=== PATIENT | female | born 1985 | race Caucasian/White ===

== ENCOUNTER 2019-09-06 12:21 | Emergency (ER) | payer BC ==
--- OUTSIDE RECORDS SUMMARY | 2019-09-06 12:24 | XMS REPORT | Summary of Care ---
:1985 Author Organization [facility] Address [address] [place] [address] Care Team Providers Name Role Phone LIBERTY FELICIANO DO Unavailable Unavailable LIBERTY FELICIANO MD Unavailable Unavailable JOSEPHINE MINING TECHNICIAN JIGNESH MOHR Unavailable Unavailable Functional Status Name Dates Details Functional status health issues are not documented Status: Name Dates Details Cognitive status health issues are not documented Status: Problems Name Dates Details Active medical history not documented Status: Medications Name Dates Details Medications not documented Allergies and Adverse Reactions Name Dates Details Allergy history not documented Status: Procedures Procedure Dates Details Procedures not documented Immunization Name Dates Details Immunizations not documented Social History Name Dates Details Tobacco smoking consumption unknown (finding) Vital Signs Date Test Result Details No Known Vitals to report Results Date Description Value Details Results not documented Plan of Care Name Dates Details Planned Observations Planned Goals not documented Planned Encounters Appointment; JIGNESH BURTON APRN On: 26-Aug-2019 11:00 Instructions Name Dates Details Instructions not documented Encounters Appointment; BRIAN ZUÑIGA M.D. On: 29-Sep-2017 14:30 Encounter Diagnosis: Problem not documented Appointment; BRIAN ZUÑIGA M.D. On: 23-Oct-2017 14:15 Encounter Diagnosis: Problem not documented Appointment; BRIAN ZUÑIGA M.D. On: 05-Nov-2017 15:15 Encounter Diagnosis: Problem not documented
--- OUTSIDE RECORDS SUMMARY | 2019-09-06 12:24 | XMS REPORT | Summary of Care ---
:1985 Author Name JIGNESH BURTON APRN Address Unavailable Unavailable , Care Team Providers Name Role Phone BRIAN ZUÑIGA M.D. Unavailable Unavailable JOSEPHINE APRN, JIGNESH Unavailable Unavailable LIBERTY FELICIANO DO Unavailable Unavailable LIBERTY FELICIANO MD Unavailable Unavailable JOSEPHINE AUTOMATIC VULCANIZING OPERATOR [place], JIGNESH Unavailable Unavailable Functional Status Name Dates Details Functional status health issues are not documented Status: Name Dates Details Cognitive status health issues are not documented Status: Problems Name Dates Details Right knee pain (719.46, M25.561) Status: Active Tear of medial meniscus of right knee (836.0, S83.241A) Status: Active Medications Name Dates Details Vyvanse CAPS Refills: 0 Active Lexapro TABS Refills: 0 Active Acetaminophen-Codeine #3 300-30 MG Oral Tablet TAKE 1 TABLET EVERY 6 HOURS NEEDED FOR PAIN. Quantity: 28 Refills: 0 YOGESH Boss, BRIAN Start : 26-Aug-2019 Active Allergies and Adverse Reactions Name Dates Details No Known Drug Allergies (Allergy) Status: Active Past Medical History Name Dates Details History of attention deficit hyperactivity disorder (ADHD) (V11.8, Z86.59) Status: Resolved History of depression (V11.8, Z86.59) Status: Resolved Procedures Procedure Dates Details MR Knee wo contrast [id number] Date: 26-Aug-2019 History of No history of surgery Completed Immunization Name Dates Details Immunizations not documented Social History Name Dates Details - Status: Name Dates Details Smoker (finding) Vital Signs Date Test Result Details [id number] Systolic blood pressure 126 mm[Hg] Status: Diastolic blood pressure 84 mm[Hg] Status: Body height 67 in Status: Weight 240 lb Status: Body mass index (BMI) [Ratio] 37.59 kg/m2 Status: Body surface area Derived from formula 2.18 m2 Status: Heart Rate 92 /min Status: Results Date Description Value Details Results not documented Plan of Care Name Dates Details Planned Observations Planned Goals not documented Interventions Provided Medication ChangesAcetaminophen-Codeine #3 300-30 MG Oral Tablet - StartLabs/ Procedures/ImagingMR Knee wo contrast [id number]; To Be Done: 26 Aug 2019[A] Xray KNEE COMPLETE 4 OR MORE VIEWS; Done: 26 Aug 2019PlanPatient Education/ Instructions: Patient education and reassurance was provided for better understanding of the diagnosis and treatment plan. An opportunity to ask questions was provided. X-ray images/reports were reviewed. Findings were discussed in detail. DME Orders: Knee Brace Wraparound knee brace order was giving today. Orders: Medications: - Tramadol 50mg. Take 1-2 every 4-6 hours as needed for pain. Tramadol is a narcotic pain medication. Use only as directed. Do NOT drive or operate machinery while using this medication. MRI Scan (right knee) MRI: Without Contrast Follow Up: Return to the clinic after imaging study completed or as needed.Patient is in clinic complaining of right knee pain, she reports that she is having significant painwith twisting and turning of her knee. 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 An MRI was ordered to evaluate for a medial meniscus tear. She was provided with knee injury exercises. T3 was provided for pain. She was also offered a wraparound knee brace.[place] PDMP was reviewed prior to pain medication prescription. Previous medications on record is forVyvanse. Pain medication will be for a short amount of time and she will wean back to envl-ulq-mrbveia medication. Medication was provided for acute pain. She will follow with Dr. Donald Bennett for her MRI results. Instructions Name Dates Details Instructions not documented Encounters Appointment; BRIAN ZUÑIGA M.D. On: 29-Sep-2017 14:30 Encounter Diagnosis: Problem not documented Appointment; BRIAN ZUÑIGA M.D. On: 23-Oct-2017 14:15 Encounter Diagnosis: Problem not documented Appointment; BRIAN ZUÑIGA M.D. On: 05-Nov-2017 15:15 Encounter Diagnosis: Problem not documented Appointment; JIGNESH BURTON APRN On: 26-Aug-2019 11:00 Encounter Diagnosis: Problem not documented
--- OUTSIDE RECORDS SUMMARY | 2019-09-06 12:24 | XMS REPORT | Summary of Care ---
:1985 Author Name BRIAN ZUÑIGA M.D. Address Unavailable Unavailable , Care Team Providers Name Role Phone YOGESH Boss, BRIAN Unavailable Unavailable JOSEPHINE MARINE ENGINEERING TECHNICIANS, JIGNESH Unavailable Unavailable LIBERTY FELICIANO DO Unavailable Unavailable LIBERTY FELICIANO MD Unavailable Unavailable JOSEPHINE BENCH ASSEMBLER OPERATOR [place], JIGNESH Unavailable Unavailable Functional Status [...] FOR PAIN. Quantity: 28 Refills: 0 YOGESH Boss BRIAN Start : 26-Aug-2019 Active Allergies and Adverse Reactions Name Dates Details No Known Drug Allergies (Allergy) Status: Active Past Medical History Name Dates Details History of attention deficit hyperactivity disorder (ADHD) (V11.8, Z86.59) Status: Resolved History of depression (V11.8, Z86.59) Status: Resolved Procedures Procedure Dates Details MR Knee wo contrast [id number] Date: 26-Aug-2019 History of No history of surgery Completed Immunization Name Dates Details Immunizations not documented Social History Name Dates Details - Status: Name Dates Details Smoker (finding) Vital Signs Date Test Result Details [id number] Systolic blood pressure 126 mm[Hg] Status: Diastolic [...] Tablet - StartLabs/ Procedures/ImagingMR Knee wo contrast [id number]; To Be Done: 26 Aug 2019[A] Xray [...] of her knee. 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 Medication was provided for acute pain. [...]
--- OUTSIDE RECORDS SUMMARY | 2019-09-06 12:24 | XMS REPORT | Summary of Care ---
:1985 Author Organization [facility] Address [address] [place] [address] Care Team Providers Name Role Phone LIBERTY FELICIANO DO Unavailable Unavailable LIBERTY FELICIANO MD Unavailable Unavailable JOSEPHINE INSURANCE PROCESSOR JIGNESH MOHR Unavailable Unavailable Functional Status Name [...]
--- OUTSIDE RECORDS SUMMARY | 2019-09-06 12:25 | XMS REPORT | Summary of Care ---
:1985 Author Name Keiry Angel M.A. Address Unavailable Unavailable , Care Team Providers Name Role Phone BRIAN ZUÑIGA M.D. Unavailable Unavailable Keiry Angel M.A. Unavailable Unavailable LIBERTY FELICIANO DO Unavailable Unavailable LIBERTY FELICIANO MD Unavailable Unavailable JOSEPHINE DIRECTOR INFORMATION [place], JIGNESH Unavailable Unavailable Functional Status Name [...] NEEDED FOR PAIN. Quantity: 28 Refills: 0 BRIAN ZUÑIGA M.D. Start : 26-Aug-2019 Active Allergies and Adverse Reactions Name Dates Details No Known Drug Allergies (Allergy) Status: Active Past Medical History Name Dates Details History of attention deficit hyperactivity disorder (ADHD) (V11.8, Z86.59) Status: Resolved History of depression (V11.8, Z86.59) Status: Resolved Procedures Procedure Dates Details MR Knee wo contrast [id number] Date: 26-Aug-2019 History of No history of surgery Completed Immunization Name Dates Details Immunizations not documented Social History Name Dates Details - Status: Name Dates Details Smoker (finding) Vital Signs Date Test Result Details 1-[id number]:11 Systolic blood pressure 126 mm[Hg] Status: Diastolic [...] Planned Goals not documented Planned Encounters Appointment; BRIAN ZUÑIGA M.D. On: 13-Sep-2019 14:30 Instructions Name Dates Details Instructions not documented Encounters Appointment; BRIAN ZUÑIGA M.D. On: 29-Sep-2017 14:30 Encounter Diagnosis: Problem not documented Appointment; BRIAN ZUÑIGA M.D. On: 23-Oct-2017 14:15 Encounter Diagnosis: Problem not documented Appointment; BRIAN ZUÑIGA M.D. On: 05-Nov-2017 15:15 Encounter Diagnosis: Problem not documented Appointment; JIGNESH BURTON APRN On: 26-Aug-2019 11:00 Encounter Diagnosis: Problem not documented
--- OUTSIDE RECORDS SUMMARY | 2019-09-06 12:25 | XMS REPORT | Summary of Care ---
:1985 Author Organization [facility] Address [address] [place] [address] Care Team Providers Name Role Phone BRIAN ZUÑIGA M.D. Unavailable Unavailable LIBERTY FELICIANO DO Unavailable Unavailable LIBERTY FELICIANO MD Unavailable Unavailable JOSEPHINE LINE REPAIRER [place], JIGNESH Unavailable Unavailable Functional Status Name Dates [...] Procedure Dates Details MR Knee wo contrast [id number] Date: 26-Aug-2019 History of No history of surgery Completed Immunization Name Dates Details Immunizations not documented Social History Name Dates Details - Status: Name Dates Details Smoker (finding) Vital Signs Date Test Result Details [id number] Systolic blood pressure 126 mm[Hg] Status: Diastolic [...]
--- OUTSIDE RECORDS SUMMARY | 2019-09-06 12:25 | XMS REPORT | Summary of Care ---
:1985 Author Organization [facility] Address [address] [place] [address] Care Team Providers Name Role Phone BRIAN ZUÑIGA M.D. Unavailable Unavailable LIBERTY FELICIANO DO Unavailable Unavailable LIBERTY FELICIANO MD Unavailable Unavailable JOSEPHINE UROLOGY NURSE [place], JIGNESH Unavailable Unavailable Functional Status Name Dates [...] Procedure Dates Details MR Knee wo contrast [id number] Date: 26-Aug-2019 History of No history of surgery Completed Immunization Name Dates Details Immunizations not documented Social History Name Dates Details - Status: Name Dates Details Smoker (finding) Vital Signs Date Test Result Details [id number] Systolic blood pressure 126 mm[Hg] Status: Diastolic [...]
[2019-09-06] MEDS ORDERED: IPRATROPIUM BROM 0.5MG/2.5ML ONE (13:01)
[2019-09-06] MEDS ORDERED: METHYLPREDNISOLONE 125 MG INJ ONE (13:01)
[2019-09-06] MEDS ORDERED: MAGNESIUM SULFATE 1 gm IVPB 1 GM/100 ML BAG IV ONE (13:02)
[2019-09-06] MEDS ORDERED: NA CHLORIDE 0.9% 1,000 ML ONE (13:02)
[2019-09-06] MEDS ORDERED: ALBUTEROL 2.5 MG/3 ML NEB SOL ONE (13:02)
--- NOTE | 2019-09-06 13:19 | RAD REPORT ---
EXAM DESCRIPTION: RAD - Chest Single View - 09/06/2019 1:04 pm CLINICAL HISTORY: Cough;SOB TECHNIQUE: AP portable chest image was obtained 09/06/2019 1:04 pm . FINDINGS: Lungs are clear. Heart and vasculature are normal. No measurable pleural effusion and no p neumothorax. No acute bony abnormality seen. No acute aortic findings suspected. IMPRESSION: No acute cardiopulmonary process.
[2019-09-06 13:36] LABS: Absolute Lymphocytes (CBC) 1.4 K/uL (0.7-4.9); Basophils % 1.3 % (0-1.3); Hematocrit 38.2 % (36.0-45.0); Lymphocytes % 31.8 % (15.3-44.8); MPV 9.3 fL (7.6-11.3); RBC Red Blood Cell Count 4.26 M/uL (3.86-4.86)
[2019-09-06 14:02] LABS: BUN Blood Urea Nitrogen 8 mg/dL (7-18); Bicarbonate 30 mmol/L (21-32); Glucose Level 85 mg/dL (74-106); NT PRO-BNP 74 pg/mL (<125); Potassium 3.9 mmol/L (3.5-5.1); Sodium Level 139 mmol/L (136-145); Troponin (Emerg Dept Use Only) < 0.02 ng/mL (0.0-0.045)
--- NOTE | 2019-09-06 14:10 | EKG ---
Test Date: 2019-09-06 Test Time: 13:04:26 Community Artist: POLY MEASUREMENT RESULTS: Intervals: Rate: 68 WV: 122 QRSD: 86 QT: 412 QTc: 438 [place]: P: 52 WV: 122 QRS: 61 T: 57 INTERPRETIVE STATEMENTS: Normal sinus rhythm Normal ECG No previous ECG available for comparison Electronically Signed On 09-06-19 14:10:00 CDT by Bro Welch
--- NOTE | 2019-09-06 15:13 | ER ---
Nurse's Notes [facility] Name: Mily Gao Age: 33 yrs Sex: Female : 1985 Arrival Date: 09/06/2019 Time: 12:26 Bed 15 Private MD: Diagnosis: Cough;Unspecified asthma with (acute) exacerbation;Bronchitis, not specified as acute or chronic Presentation: 09/05 12:41 Chief complaint: Patient states: productive cough and congestion x 2 days, denies dm5 fever. Pt also reports headache. Coronavirus screen: The patient has NOT traveled to a country currently being monitored by the [facility] within the last 14 days. Proceed with normal triage procedures. The patient has NOT had contact with any known and/or suspected case of coronavirus. Proceed with normal triage procedures. Ebola Screen: Patient negative for fever greater than or equal to 101.5 degrees Fahrenheit, and additional compatible Ebola Virus Disease symptoms Patient denies exposure to infectious person. Patient denies travel to an Ebola-affected area in the 21 days before illness onset. No symptoms or risks identified at this time. Initial Sepsis Screen: Does the patient meet any 2 criteria? No. Patient's initial sepsis screen is negative. Does the patient have a suspected source of infection? No. Patient's initial sepsis screen is negative. Risk Assessment: Do you want to hurt yourself or someone else? Patient reports no desire to harm self or others. 12:41 Method Of Arrival: Ambulatory dm5 12:41 Acuity: CATARINO 3 dm5 Historical: - Allergies: 12:50 Xopenex; em - Home Meds: 12:50 Albuterol Inhl [Active]; Vyvanse oral oral [Active]; Lexapro Oral [Active]; em - PMHx: 12:50 Asthma; em - PSHx: 12:50 ; em - Immunization history:: Adult Immunizations up to date. - Social history:: Smoking status: Patient denies any tobacco usage or history of. - Family history:: not pertinent. - Hospitalizations: : No recent hospitalization is reported. Screenin:50 Abuse screen: Denies threats or abuse. Nutritional screening: No deficits noted. em Tuberculosis screening: No symptoms or risk factors identified. Fall Risk None identified. Assessment: 13:00 General: Appears in no apparent distress. comfortable, Behavior is calm, cooperative, em Denies fever. Pain: Complains of pain in chest Pain currently is 6 out of 10 on a pain scale. Neuro: Level of Consciousness is awake, alert, obeys commands, Oriented to person, place, time, situation, Appropriate for age. Cardiovascular: Capillary refill < 3 seconds Patient's skin is warm and dry. Rhythm is sinus rhythm. Respiratory: Reports cough that is productive, Airway is patent Respiratory effort is even, unlabored, Respiratory pattern is regular, symmetrical, Breath sounds with wheezes bilaterally. the patient has moderate shortness of breath. GI: Patient currently denies nausea, vomiting. EENT: Denies pain when swallowing. Derm: Skin is intact, is healthy with good turgor, Skin is pink, warm \T\ dry. Musculoskeletal: Capillary refill < 3 seconds, Range of motion: intact in all extremities. 14:02 Reassessment: Patient appears in no apparent distress at this time. Patient and/or em family updated on plan of care and expected duration. Pain level reassessed. Patient is alert, oriented x 3, equal unlabored respirations, skin warm/dry/pink. 15:12 Reassessment: Patient appears in no apparent distress at this time. Patient and/or em family updated on plan of care and expected duration. Pain level reassessed. Patient is alert, oriented x 3, equal unlabored respirations, skin warm/dry/pink. Patient states feeling better. Vital Signs: 12:41 BP 117 / 68; Pulse 78; Resp 20; Temp 97.9; Pulse Ox 95% on R/A; Weight 108.86 kg; dm5 Height 5 ft. 7 in. (170.18 cm); Pain 6/10; 14:12 BP 106 / 69; Pulse 80; Resp 22; Pulse Ox 97% on R/A; em 15:10 BP 112 / 81; Pulse 75; Resp 18; Pulse Ox 97% on R/A; em 12:41 Body Mass Index 37.59 (108.86 kg, 170.18 cm) dm5 ED Course: 12:26 Patient arrived in ED. ag5 12:28 Andrey Fitzgerald MD is Attending Physician. rn 12:39 Ori Vizcarra RN is Primary Nurse. em 12:43 Triage completed. dm5 12:50 Patient has correct armband on for positive identification. Placed in gown. Bed in low em position. Call light in reach. Side rails up X2. Adult w/ patient. Pulse ox on. NIBP on. 12:50 Arm band placed on. em 13:05 XRAY CXR (1 view) In Process Unspecified. EDMS 13:06 EKG done, by restoration technician. reviewed by Andrey Fitzgerald MD. at1 13:18 Inserted saline lock: 20 gauge in right antecubital area, using aseptic technique. em Blood collected. 13:18 Initial lab(s) drawn, by me, sent to lab. First set of blood cultures drawn by me. em 15:46 No provider procedures requiring assistance completed. IV discontinued, intact, em bleeding controlled, No redness/swelling at site. Pressure dressing applied. Administered Medications: 13:12 Drug: Albuterol 2.5 mg Route: Inhalation; em 13:44 Follow up: Response: No adverse reaction; Marked relief of symptoms em 13:12 Drug: Albuterol 2.5 mg Route: Inhalation; em 13:12 Drug: Albuterol 2.5 mg Route: Inhalation; em 13:12 Drug: AtroVENT Aerosol 0.5 mg Route: Inhalation; em 13:44 Follow up: Response: No adverse reaction; Marked relief of symptoms em 13:18 Drug: NS 0.9% 1000 ml Route: IV; Rate: 1000 ml; Site: right antecubital; em 15:48 Follow up: IV Status: Completed infusion; IV Intake: 1000ml em 13:20 Drug: Magnesium Sulfate 1 grams Route: IVPB; Infused Over: 1 hrs; Site: right em antecubital; 14:22 Follow up: Response: No adverse reaction; IV Status: Completed infusion; IV Intake: em 100ml 13:31 Drug: SOLU-Medrol 125 mg Route: IVP; Site: right antecubital; em 13:59 Follow up: Response: No adverse reaction em 15:27 Drug: Rocephin 1 grams Route: IV; Rate: calculated rate; Site: right antecubital; em 15:47 Follow up: Response: No adverse reaction; IV Status: Completed infusion; IV Intake: 10mlem 15:27 Not Given (Physician Discretion): Zithromax 500 mg IVPB once over 1 hrs; mix in 250 mL em NS 15:27 Drug: Zithromax 500 mg Route: PO; em 15:48 Follow up: Response: No adverse reaction em Intake: 14:22 IV: 100ml; Total: 100ml. em 15:47 IV: 10ml; Total: 110ml. em 15:48 IV: 1000ml; Total: 1110ml. em Outcome: 15:13 Discharge ordered by . rn 15:46 Discharged to home ambulatory. em 15:46 Condition: good 15:46 Discharge instructions given to patient, Instructed on discharge instructions, follow up and referral plans. medication usage, Demonstrated understanding of instructions, follow-up care, medications, Prescriptions given X 2. 15:49 Patient left the ED. em Signatures: Dispatcher [employer] EDShonda Nguyễn RN RN dm5 Ori Vizcarra RN RN Andrey Renner MD MD rn Gonzales, Amanda, master ocean yacht EKG Tat1 Meliton Anthony ag5
--- NOTE | 2019-09-06 15:13 | EDPHYS ---
Physician Documentation [facility] Name: Mily Gao Age: 33 yrs Sex: Female : 1985 Arrival Date: 09/06/2019 Time: 12:26 Bed 15 Private MD: ED Physician Andrey Fitzgerald HPI: 09/05 13:35 This 33 yrs old Female presents to ER via Ambulatory with complaints of rn Cough, Breathing Difficulty, Headache. 14:10 The patient or guardian reports cough, flu symptoms. rn 14:10 Onset: The symptoms/episode began/occurred 2 day(s) ago. Severity of symptoms: At their rn worst the symptoms were moderate, in the emergency department the symptoms are unchanged. Modifying factors: The symptoms are alleviated by nothing, the symptoms are aggravated by nothing. The patient has experienced similar episodes in the past. The patient has not recently seen a physician. Reports cough, wheezing, sob, for 2 days, not improving with inhaler. Unknown if fever. No travel, no exposure to COVID-19 + patients. . Historical: - Allergies: 12:50 Xopenex; em - Home Meds: 12:50 Albuterol Inhl [Active]; Vyvanse oral oral [Active]; Lexapro Oral [Active]; em - PMHx: 12:50 Asthma; em - PSHx: 12:50 ; em - Immunization history:: Adult Immunizations up to date. - Social history:: Smoking status: Patient denies any tobacco usage or history of. - Family history:: not pertinent. - Hospitalizations: : No recent hospitalization is reported. ROS: 14:10 Constitutional: Negative for fever, chills, and weight loss, Eyes: Negative for injury, rn pain, redness, and discharge, Neck: Negative for injury, pain, and swelling, Cardiovascular: Negative for chest pain, palpitations, and edema, Respiratory: + cough and wheezing Abdomen/GI: Negative for abdominal pain, nausea, vomiting, diarrhea, and constipation, MS/Extremity: Negative for injury and deformity, Skin: Negative for injury, rash, and discoloration, Neuro: Negative for weakness, numbness, tingling, and seizure. Exam: 13:35 ECG was reviewed by the Attending Physician. rn 14:10 Constitutional: This is a well developed, well nourished patient who is awake, alert, rn + mild to moderate respiratory distress Head/Face: Normocephalic, atraumatic. ENT: dry MM, no stridor or swelling Neck: No cervical lymphadenopathy. Cardiovascular: Regular rate and rhythm. No pulse deficits. Respiratory: + diffuse exp wheezing bilaterally, + mild tachypnea, no retractions. Skin: Warm, dry MS/ Extremity: Pulses equal, no cyanosis. Neuro: Awake and alert, GCS 15 Vital Signs: 12:41 BP 117 / 68; Pulse 78; Resp 20; Temp 97.9; Pulse Ox 95% on R/A; Weight 108.86 kg; dm5 Height 5 ft. 7 in. (170.18 cm); Pain 6/10; 14:12 BP 106 / 69; Pulse 80; Resp 22; Pulse Ox 97% on R/A; em 15:10 BP 112 / 81; Pulse 75; Resp 18; Pulse Ox 97% on R/A; em 12:41 Body Mass Index 37.59 (108.86 kg, 170.18 cm) dm5 MDM: 12:38 Patient medically screened. rn 15:08 Differential Diagnosis: Bronchitis Influenza Upper Respiratory Infection Asthma rn Exacerbation Viral Syndrome Pneumonia. Data reviewed: vital signs, nurses notes, lab test result(s), radiologic studies, plain films, and as a result, I will discharge patient. Test interpretation: by ED physician or midlevel provider: plain radiologic studies, Xray chest negative for acute findings/pneumonia. Counseling: I had a detailed discussion with the patient and/or guardian regarding: the historical points, exam findings, and any diagnostic results supporting the discharge/admit diagnosis, lab results, radiology results, the need for outpatient follow up, to return to the emergency department if symptoms worsen or persist or if there are any questions or concerns that arise at home. Response to treatment: the patient's symptoms have markedly improved after treatment. Special discussion: I discussed with the patient/guardian in detail that at this point there is no indication for admission to the hospital. It is understood, however, that if the symptoms persist or worsen the patient needs to return immediately for re-evaluation. 09/05 12:53 Order name: Blood Culture Adult (2) rn 09/05 12:53 Order name: BMP; Complete Time: 14:55 rn 09/05 12:53 Order name: CBC with Diff; Complete Time: 13:51 rn 09/05 12:53 Order name: NT PRO-BNP; Complete Time: 14:55 rn 09/05 12:53 Order name: Troponin (emerg Dept Use Only); Complete Time: 14:55 rn 09/05 12:53 Order name: Procalcitonin; Complete Time: 14:55 rn 09/05 12:53 Order name: XRAY CXR (1 view); Complete Time: 13:31 rn 09/05 12:53 Order name: Flu; Complete Time: 14:55 rn 09/05 12:53 Order name: IV Start; Complete Time: 14:11 rn 09/05 12:53 Order name: EKG; Complete Time: 12:54 rn 09/05 12:53 Order name: Cardiac monitoring; Complete Time: 14:11 rn 09/05 12:53 Order name: EKG - Nurse/Tech; Complete Time: 14:11 rn 09/05 12:53 Order name: Labs collected and sent; Complete Time: 14:11 rn 09/05 12:53 Order name: O2 Per Protocol; Complete Time: 14:11 rn 09/05 12:53 Order name: O2 Sat Monitoring; Complete Time: 14:11 rn EC:35 Rate is 68 beats/min. Rhythm is regular. QRS [place] is Normal. MD interval is normal. QRS rn interval is normal. QT interval is normal. No Q waves. T waves are Normal. No ST changes noted. Clinical impression: Normal ECG. Interpreted by me. Reviewed by me. Administered Medications: 13:12 Drug: Albuterol 2.5 mg Route: Inhalation; em 13:44 Follow up: Response: No adverse reaction; Marked relief of symptoms em 13:12 Drug: Albuterol 2.5 mg Route: Inhalation; em 13:12 Drug: Albuterol 2.5 mg Route: Inhalation; em 13:12 Drug: AtroVENT Aerosol 0.5 mg Route: Inhalation; em 13:44 Follow up: Response: No adverse reaction; Marked relief of symptoms em 13:18 Drug: NS 0.9% 1000 ml Route: IV; Rate: 1000 ml; Site: right antecubital; em 15:48 Follow up: IV Status: Completed infusion; IV Intake: 1000ml em 13:20 Drug: Magnesium Sulfate 1 grams Route: IVPB; Infused Over: 1 hrs; Site: right em antecubital; 14:22 Follow up: Response: No adverse reaction; IV Status: Completed infusion; IV Intake: em 100ml 13:31 Drug: SOLU-Medrol 125 mg Route: IVP; Site: right antecubital; em 13:59 Follow up: Response: No adverse reaction em 15:27 Drug: Rocephin 1 grams Route: IV; Rate: calculated rate; Site: right antecubital; em 15:47 Follow up: Response: No adverse reaction; IV Status: Completed infusion; IV Intake: 10mlem 15:27 Not Given (Physician Discretion): Zithromax 500 mg IVPB once over 1 hrs; mix in 250 mL em NS 15:27 Drug: Zithromax 500 mg Route: PO; em 15:48 Follow up: Response: No adverse reaction em Disposition: 09/06/19 15:13 Discharged to Home. Impression: Cough, Unspecified asthma with (acute) exacerbation, Bronchitis, not specified as acute or chronic. - Condition is Stable. - Discharge Instructions: Acute Bronchitis, Adult, Asthma, Acute Bronchospasm, Cough, Adult. - Prescriptions for Prednisone 20 mg Oral Tablet - take 3 tablet by ORAL route once daily for 5 days; 15 tablet. Zithromax Z- Luciano 250 mg Oral Tablet - take 1 tablet by ORAL route as directed for 5 days Day 1 - take two (2) tablets one time. Day 2, 3, 4 , 5 take one (1) tablet once daily.; 6 tablet. - Medication Reconciliation Form, Thank You Letter, Antibiotic Education, Prescription Opioid Use, Work release form form. - Follow up: Private Physician; When: As needed; Reason: Recheck today's complaints, Re-evaluation by your physician. - Problem is new. - Symptoms have improved. Signatures: Dispatcher [employer] Ori Myrick, RN RN Andrey Fitzgerald MD MD burn out scarfing operator: (The following items were deleted from the chart) 13:28 12:54 Group A Streptococcus Rapid [id number] ordered. [facility] 15:49 15:13 09/06/2019 15:13 Discharged to Home. Impression: Cough; Unspecified asthma with em (acute) exacerbation; Bronchitis, not specified as acute or chronic. Condition is Stable. Forms are Medication Reconciliation Form, Thank You Letter, Antibiotic Education, Prescription Opioid Use. Follow up: Private Physician; When: As needed; Reason: Recheck today's complaints, Re-evaluation by your physician. Problem is new. Symptoms have improved. rn
[2019-09-06] MEDS ORDERED: CEFTRIAXONE/SWI 1gm 1 GM/10 ML SYR ONE (15:24)
[2019-09-06] MEDS ORDERED: AZITHROMYCIN 250 MG TAB ONE (15:24)
[2019-09-06 16:08] VITALS: TEMP 97.9
[2019-09-06 16:10] VITALS: O2SAT 97
[2019-09-06 16:12] VITALS: BP 112/81
== END 2019-09-06 15:49 | disposition home or self-care (01) ==
LOC: ER 12:21
DX: J45.901 Unspecified asthma with (acute) exacerbation (principal); Z88.8 Allergy status to other drugs, medicaments and biological substances
CPT/HCPCS: 96365; 96367; 96361; 93005; 87040 ×2; 85025; 80048; 36415; 84484; 84145; 83880; 87804 ×2; 71045; 96375; 99285; J3475; J0696; J7030; J2930